=== PATIENT | male | born 1955 | race African-American/Black ===

== ENCOUNTER 2019-03-17 18:03 | Inpatient (IN) | payer OTHER ==
[~2019-03-17] VITALS: Ht 182.9 cm; Wt 140.3 kg
[2019-03-17 18:36] LABS: Basophils # (auto) 0.1 uL; Basophils % (auto) 1.1 % (0.0-2.0); Eosinophils # (auto) 0 uL; Eosinophils % (auto) 0.8 % (0.0-7.0); Hematocrit 48.8 % (41.0-53.0); Hemoglobin 15.9 g/dL (13.5-17.5); Lymphocytes # (auto) 1.5 uL; Lymphocytes % (auto) 29.8 % (10.0-50.0); Mean Corpuscular Hemoglobin 27.1 pg (28.0-32.0); Mean Corpuscular Hgb Conc. 32.7 g/dL (32.0-36.0); Monocytes # (auto) 0.6 uL; Monocytes % (auto) 11.5 % (0.0-12.0); Neutrophils # (auto) 2.9 uL; Neutrophils % (auto) 56.8 % (37.0-80.0); Nucleated Red Blood Cells % 0.1 %; Platelet Count (auto) 242 10^3/uL (140-450); Red Blood Cells 5.88 10^6/uL (4.5-5.90); Red Cell Distribution Width 16.3 % (11.8-14.3); White Blood Cell 5.1 10^3/uL (4.4-10.8)
[2019-03-17 18:59] LABS: Albumin 3.8 g/dL (3.4-5.0); BUN/Creatinine Ratio 13.9; Calcium 9.1 mg/dL (8.5-10.1); Magnesium 2.3 mg/dL (1.6-2.6); Potassium 4.7 mmol/L (3.5-5.1)
[2019-03-17 19:04] LABS: Bilirubin, Total 0.7 mg/dL (0.2-1.0); Total Protein 7.6 g/dL (6.4-8.2)
[2019-03-17 19:06] LABS: INR 1.04 (0.9-1.15)
[2019-03-17] MEDS ORDERED: NITROGLYCERIN 50MG/250ML 250 ML IV SCH (19:37)
[2019-03-17] MEDS ORDERED: METOPROLOL TARTRATE 1MG/1ML-5ML VIAL IV ONE ×2 (19:38→19:45)
[2019-03-17] MEDS ORDERED: MORPHINE SULF INJ 2 MG/ML SYRINGE 1ML IV PRN ×2 (19:45)
[2019-03-17] MEDS ORDERED: ACETAMINOPHEN 500 MG TAB PO PRN (19:45)
[2019-03-17] MEDS ORDERED: HYDROcodone-ACET 5/325MG TAB PO PRN (19:45)
[2019-03-17] MEDS ORDERED: NITROGLYCERIN 0.4 MG SL TAB SL PRN (19:45)
[2019-03-17] MEDS ORDERED: CLOPIDOGREL 300 MG TAB PO ONE (20:00)
[2019-03-17 20:28] LABS: Urine Bacteria NONE SEEN /hpf (None Seen); Urine Blood Negative /uL (Negative); Urine Specific Gravity 1.017 (1.001-1.035); Urine WBC <1 /hpf (0 - 3)
[2019-03-17] MEDS ORDERED: HEPARIN DRIP/D5W 100UNITS/ML 250 ML IV SCH (21:00)
[2019-03-17] MEDS ORDERED: HEPARIN SODIUM (PORCINE) 5000 UNITS/ML 1ML VIAL IV ONE (21:00)
[2019-03-17] MEDS: METOPROLOL TARTRATE 25 MG TAB PO SCH (22:14)
[2019-03-17] MEDS: ATORVASTATIN 20 MG TAB PO SCH (22:14)
[2019-03-18] MEDS ORDERED: METOPROLOL SUCCINATE XL 50 MG TAB PO ONE (01:00)
[2019-03-18] MEDS ORDERED: ATORVASTATIN 20 MG TAB PO ONE (01:00)
[2019-03-18] MEDS ORDERED: MORPHINE SULF INJ 2 MG/ML SYRINGE 1ML IV PRN (03:00)
[2019-03-18] MEDS ORDERED: NITROGLYCERIN 0.4 MG SL TAB SL PRN (03:00)
[2019-03-18 04:30] LABS: INR 1.1 (0.9-1.15); Partial Thromboplastin Time 37.1 sec (23.64-32.05)
[2019-03-18 07:23] LABS: Basophils # (auto) 0 uL; Basophils % (auto) 0.7 % (0.0-2.0); Eosinophils # (auto) 0 uL; Eosinophils % (auto) 0.9 % (0.0-7.0); Hematocrit 46.2 % (41.0-53.0); Hemoglobin 15.2 g/dL (13.5-17.5); Lymphocytes # (auto) 1.4 uL; Lymphocytes % (auto) 30.2 % (10.0-50.0); Mean Corpuscular Hemoglobin 27.2 pg (28.0-32.0); Mean Corpuscular Hgb Conc. 32.9 g/dL (32.0-36.0); Mean Corpuscular Volume 82.6 fL (80.0-100.0); Monocytes # (auto) 0.6 uL; Monocytes % (auto) 13.4 % (0.0-12.0); Neutrophils # (auto) 2.5 uL; Neutrophils % (auto) 54.8 % (37.0-80.0); Nucleated Red Blood Cells % 0.1 %; Platelet Count (auto) 251 10^3/uL (140-450); Red Blood Cells 5.59 10^6/uL (4.5-5.90); White Blood Cell 4.6 10^3/uL (4.4-10.8)
[2019-03-18 07:35] LABS: BUN/Creatinine Ratio 13.2; Calcium 8.5 mg/dL (8.5-10.1); Potassium 4.4 mmol/L (3.5-5.1)
[2019-03-18] MEDS ORDERED: LISINOPRIL 10 MG TAB PO ONE (07:45)
[2019-03-18 07:46] LABS: Cholesterol 169 mg/dL (< 200)
[2019-03-18 07:47] LABS: HDL Cholesterol 35 mg/dL (40-59); LDL Cholesterol 127 mg/dL (< 100); Triglycerides 60 mg/dL (< 150)
[2019-03-18 08:07] LABS: INR 1.1 (0.9-1.15); Partial Thromboplastin Time 39.2 sec (23.64-32.05)
[2019-03-18] MEDS ORDERED: ASPirin-EC 81 mg tab PO SCH (10:00)
[2019-03-18] MEDS ORDERED: ASPirin 81 mg TAB PO SCH (10:00)
[2019-03-18] MEDS: METOPROLOL TARTRATE 25 MG TAB PO SCH (10:09)
[2019-03-18] MEDS: FAMOTIDINE 20 MG TAB PO SCH (10:11)
[2019-03-18 10:32] LABS: INR 1.11 (0.9-1.15); Partial Thromboplastin Time 39.6 sec (23.64-32.05)
[2019-03-18] MEDS ORDERED: IOHEXOL 350 MG/ML 100ML IJ ONE ×2 (13:52→14:28)
[2019-03-18] MEDS ORDERED: LIDOCAINE 2%HCL (LOCAL ANESTH.) INJ 20ML MDV ONE ×2 (13:52→15:23)
[2019-03-18] MEDS ORDERED: MIDAZOLAM HCL 1MG/1ML-2 ML VIAL ONE ×2 (14:27→15:42)
[2019-03-18] MEDS ORDERED: SODIUM CHL 0.9% 0 ML ONE (14:27)
[2019-03-18] MEDS ORDERED: fentaNYL CITRATE 100 MCG/2 ML VL ONE (14:27)
[2019-03-18] MEDS ORDERED: ANGIOMAX 250 MG VIAL IV ONE (14:27)
--- NOTE | 2019-03-18 17:04 | NUR ---
Telemetry admit from labels molder MILA WILHELM admitted to Telemetry unit after SBAR received from labels molder. Patient oriented to CABRERA OCHOA, RN primary RN, unit, room, bed, and unit policies regarding patient care and visiting hours. Patient now on continuous telemetry monitoring, tele box # 10 and telemetry reading on arrival to unit is Sinus rythem. Patient placed on bedside oxygen 2 LPm NC, weighed by bedscale and encouraged to call if they need something. All questions and concerns addressed, patient verbalized understanding. Site is assessed and soft at this time. Will continue to monitor.
--- NOTE | 2019-03-18 17:29 | NUR ---
Access site assessed at this time and is soft. Patient has no complaints of pain at this time.
--- NOTE | 2019-03-18 17:58 | NUR ---
Access site assess at this time. Soft, patient states no pain at this time. Will continue to monitor.
--- NOTE | 2019-03-18 18:15 | NUR ---
Assess access site at this time. Soft, non tender.
--- NOTE | 2019-03-18 18:34 | NUR ---
Went to assess patient at this time. Patient standing, removed tele, removed IV. Patient instructed to get back in bed. Site assessed at this time. No hematoma formed. Will continue to monitor.
--- NOTE | 2019-03-18 18:53 | NUR ---
Site assessed at this time. Soft. No hematoma noted. Will continue to monitor.
--- NOTE | 2019-03-18 19:00 | NUR ---
Unsuccessful IV attempts by this nurse. Will endorse to NOC nurse
--- NOTE | 2019-03-18 19:27 | NUR ---
Closing Note: Patient lying in bed. No S/S of distress/SOB or pain at this time. at bedside. Care endorsed to [facility] nurse Gasca
[2019-03-18] MEDS: FUROSEMIDE 20 MG TAB PO SCH (19:32)
--- NOTE | 2019-03-18 19:40 | NUR ---
OPENING SHIFT NOTE RECEIVED REPORT FROM ABDULAZIZ RN. PATIENT A/O X4, AMBULATORY. AT BEDSIDE. NO S/S OF DISTRESS OR SOB. RIGHT GROIN DRESSING CLEAN, DRY, AND INTACT, NO S/S OF BLEEDING OR HEMATOMA. UPDATED PATIENT ON POC, VERBALIZED UNDERSTANDING. BED LOCKED IN LOW POSITION, CALL LIGHT WITHIN REACH. WILL CONTINUE TO MONITOR PATIENT Q1HR AND PRN.
--- NOTE | 2019-03-18 20:25 | NUR ---
CALL FROM DR SHAIKH INQUIRING ABOUT PATIENT STATUS, UPDATED MD ON PATIENT STATUS, AND NEW ORDER RECEIVED FOR CARVEDILOL 12.5MG BID. WILL CARRY OUT ORDER.
[2019-03-18] MEDS: ATORVASTATIN 20 MG TAB PO SCH (21:25)
[2019-03-18] MEDS: CARVEDILOL 12.5 MG TAB PO SCH (21:25)
[2019-03-18 21:54] LABS: INR 1.1 (0.9-1.15); Partial Thromboplastin Time 30.8 sec (23.64-32.05)
[2019-03-18 21:57] VITALS: BP 137/85
[2019-03-19 04:41] VITALS: BP 116/70
[2019-03-19] MEDS: FUROSEMIDE 20 MG TAB PO SCH ×2 (05:57→18:12)
[2019-03-19 07:13] LABS: BUN/Creatinine Ratio 14.8; Calcium 8.6 mg/dL (8.5-10.1); Potassium 4.6 mmol/L (3.5-5.1)
--- NOTE | 2019-03-19 07:20 | NUR ---
Opening Shift Note: Assumed care of patient, awake and alert. No S/S of distress/SOB or pain. Right groin access site assessed, no hematomas noted, patient states no pain. Bed in lowest locked position, side rails up x2, call light within reach. Patient and instructed on POC and to call for assist PRN, will continue to monitor for changes Q1hr and PRN.
--- NOTE | 2019-03-19 08:48 | NUR ---
Dr. Saba at bedside. Discussed POC with patient and family. Patient verbally agrees. Will continue to monitor.
[2019-03-19 09:00] VITALS: BP 144/89
[2019-03-19] MEDS: CARVEDILOL 12.5 MG TAB PO SCH ×2 (09:58→21:25)
[2019-03-19] MEDS: FAMOTIDINE 20 MG TAB PO SCH (09:58)
--- NOTE | 2019-03-19 10:36 | NUR ---
Patient down for VQ scan
--- NOTE | 2019-03-19 11:08 | NUR ---
Patient back to unit. Patient tolerated well. Will continue to monitor.
--- NOTE | 2019-03-19 11:26 | NUR ---
Patient ambulates forman. Patient tolerated well. Will continue to monitor.
[2019-03-19 13:00] VITALS: BP 125/83
[2019-03-19 13:10] LABS: INR 1.12 (0.9-1.15); Partial Thromboplastin Time 30.9 sec (23.64-32.05)
[2019-03-19 17:00] VITALS: BP 137/78
[2019-03-19 18:00] LABS: INR 1.12 (0.9-1.15); Partial Thromboplastin Time 32.2 sec (23.64-32.05)
--- NOTE | 2019-03-19 19:13 | NUR ---
Closing note: Patient laying in bed. No signs or symptoms of distress/SOB or pain at this time. Care endorse to [facility] nurse Gasca
--- NOTE | 2019-03-19 19:30 | NUR ---
OPENING SHIFT NOTE RECEIVED REPORT FROM DAYSHIFT RN. PATIENT A/O X4, AMBULATORY. NO S/S OF DISTRESS OR SOB. RIGHT GROIN DRESSING CLEAN, DRY, AND INTACT, NO S/S OF BLEEDING OR HEMATOMA. UPDATED PATIENT ON POC, VERBALIZED UNDERSTANDING. BED LOCKED IN LOW POSITION, CALL LIGHT WITHIN REACH. WILL CONTINUE TO MONITOR PATIENT Q1HR AND PRN.
[2019-03-19] MEDS: ATORVASTATIN 20 MG TAB PO SCH (21:25)
[2019-03-19 21:31] VITALS: BP 123/68
[2019-03-20 04:46] VITALS: BP 140/76
[2019-03-20] MEDS: FUROSEMIDE 20 MG TAB PO SCH ×2 (06:03→18:08)
[2019-03-20 06:10] LABS: Potassium 4.1 mmol/L (3.5-5.1)
[2019-03-20 06:15] LABS: BUN/Creatinine Ratio 14.4; Calcium 8.4 mg/dL (8.5-10.1)
--- NOTE | 2019-03-20 07:51 | NUR ---
OPENING NOTE Assumed care of patient from NOC RNKatharine. Patient awake and alert with no S/S of distress/SOB or pain. Instructed on POC and to call for assistance PRN, verbalized understanding. Bed in lowest, locked position with side rails up x2 and call light within reach. Will continue to monitor for changes Q1hr and PRN.
[2019-03-20 08:30] VITALS: BP 147/83
[2019-03-20] MEDS: FAMOTIDINE 20 MG TAB PO SCH (09:49)
[2019-03-20] MEDS: CARVEDILOL 12.5 MG TAB PO SCH ×2 (09:49→21:23)
[2019-03-20 12:30] VITALS: BP 143/84
--- NOTE | 2019-03-20 13:15 | NUR ---
FAMILY Patient's spouse, Jennifer, at bedside.
--- NOTE | 2019-03-20 16:42 | NUR ---
ROUNDS Patient sitting on side of bed, spouse is at bedside. No S/S of distress noted.
[2019-03-20 16:48] VITALS: BP 109/72
--- NOTE | 2019-03-20 19:30 | NUR ---
Opening Shift Note Assumed care of patient, awake and alert x4. noted at bedside. Patient denies pain at this time. No signs/symptoms of distress noted at this time. Instructed on plan of care and to call for assistance as needed. Bed is locked in lowest position, side rails x 2 are up, and call light is within reach.
--- NOTE | 2019-03-20 19:43 | NUR ---
CLOSING NOTE Endorsed care of patient to NOC RNLetty.
[2019-03-20] MEDS: ATORVASTATIN 20 MG TAB PO SCH (21:23)
[2019-03-20 22:21] VITALS: BP 142/87
[2019-03-21 05:13] VITALS: BP 153/87
[2019-03-21] MEDS: FUROSEMIDE 20 MG TAB PO SCH ×2 (05:48→18:37)
[2019-03-21 06:29] LABS: Basophils # (auto) 0 uL; Basophils % (auto) 0.4 % (0.0-2.0); Eosinophils # (auto) 0.1 uL; Eosinophils % (auto) 1.6 % (0.0-7.0); Hemoglobin 13.2 g/dL (13.5-17.5); Lymphocytes # (auto) 1.2 uL; Lymphocytes % (auto) 23.4 % (10.0-50.0); Mean Corpuscular Hemoglobin 27.4 pg (28.0-32.0); Mean Corpuscular Hgb Conc. 33.1 g/dL (32.0-36.0); Monocytes # (auto) 0.7 uL; Monocytes % (auto) 14.1 % (0.0-12.0); Neutrophils # (auto) 3.1 uL; Neutrophils % (auto) 60.5 % (37.0-80.0); Platelet Count (auto) 215 10^3/uL (140-450); Red Blood Cells 4.82 10^6/uL (4.5-5.90); White Blood Cell 5.1 10^3/uL (4.4-10.8)
[2019-03-21 06:48] LABS: BUN/Creatinine Ratio 12.2; Calcium 8.7 mg/dL (8.5-10.1); Potassium 3.8 mmol/L (3.5-5.1)
--- NOTE | 2019-03-21 07:15 | NUR ---
PATIENT TAKEN TO VARIETY LATHE OPERATOR Patient taken to laborer operator via stretcher with assistance of aide. No signs/symptoms of distress noted upon departure. Report given to laborer operator RN.
--- NOTE | 2019-03-21 07:27 | NUR ---
OPENING NOTE Assumed care of patient from NOC RNLetty. Patient currently off unit for scheduled procedure.
[2019-03-21] MEDS ORDERED: LIDOCAINE 2%HCL (LOCAL ANESTH.) INJ 20ML MDV ONE ×2 (07:44→08:55)
[2019-03-21] MEDS ORDERED: fentaNYL CITRATE 100 MCG/2 ML VL ONE (07:45)
[2019-03-21] MEDS ORDERED: MIDAZOLAM HCL 1MG/1ML-2 ML VIAL ONE (07:46)
[2019-03-21] MEDS ORDERED: ceFAZolin 1GM/50ML 50 ML IV ONE (08:01)
[2019-03-21] MEDS ORDERED: VANCOMYCIN HCL 1000 MG VL ONE ×2 (08:01→09:35)
[2019-03-21] MEDS ORDERED: VANCOMYCIN 1GM/250ML 250 ML IV ONE (09:20)
[2019-03-21] MEDS ORDERED: LABETALOL HCL 5 MG/ML ML 20ML VIAL IV ONE (10:04)
[2019-03-21] MEDS: CARVEDILOL 12.5 MG TAB PO SCH ×3 (10:31→21:51)
[2019-03-21] MEDS: FAMOTIDINE 20 MG TAB PO SCH (10:31)
[2019-03-21] MEDS ORDERED: HYDROcodone-ACET 5/325MG TAB PO PRN (11:00)
--- NOTE | 2019-03-21 11:33 | NUR ---
RETURN TO UNIT Patient returned to unit via bed, accompanied by spouse. Dressing to left upper chest clean/dry and intact. No S/S of distress/SOB or pain noted. Will continue to monitor Q1hr/PRN.
[2019-03-21] MEDS: ceFAZolin 1GM/50ML 50 ML IV SCH ×3 (12:35→23:57)
--- NOTE | 2019-03-21 13:02 | NUR ---
NUTRITION ASSESSMENT NOTES Please refer to link notes of nutrition screen form filed under the intervention section of the plan of care for further details. Est. Needs: 2100 kcal to 2800 kcal (15-20 kcal/kgBW), 65 gms to 81 gms pro (1.0-1.2 gms/kgIBW: 65 kg). Will continue to monitor pertinent labs and reassess nutrient need prn Thank you. Addendum: 03/21/19 at [address] Amended: Links added.
--- NOTE | 2019-03-21 13:55 | NUR ---
NEPHROLOGY New orders received for urine protein creatinine clearance test, per Dr. Kamila Monroe.
[2019-03-21 17:02] VITALS: BP 149/73
--- NOTE | 2019-03-21 17:05 | NUR ---
URINE Urine specimen collected and sent to lab via bullet.
--- NOTE | 2019-03-21 19:30 | NUR ---
Opening Shift Note Assumed care of patient, awake and alert x4. noted at bedside. Patient denies pain at this time. No signs/symptoms of distress noted at this time. Instructed on plan of care and to call for assistance as needed, patient verbalized understanding. Bed is locked in lowest position, side rails x 2 are up, and call light is within reach.
[2019-03-21 21:32] VITALS: BP 139/84
[2019-03-21] MEDS: SACUBITRIL-VALSARTAN 24mg/26mg TAB PO SCH (21:50)
[2019-03-21] MEDS: ATORVASTATIN 20 MG TAB PO SCH (21:50)
[2019-03-22 04:25] LABS: Protein, Urine 16.6 mg/dL (0.0-11.9)
[2019-03-22 05:34] VITALS: BP 149/84
[2019-03-22] MEDS: FUROSEMIDE 20 MG TAB PO SCH (06:10)
[2019-03-22] MEDS: ceFAZolin 1GM/50ML 50 ML IV SCH ×2 (06:10→12:45)
[2019-03-22 06:28] LABS: Potassium 4.1 mmol/L (3.5-5.1)
[2019-03-22 06:37] LABS: BUN/Creatinine Ratio 13.3; Calcium 8.1 mg/dL (8.5-10.1)
--- NOTE | 2019-03-22 07:30 | NUR ---
Opening Shift Note Assumed care of patient, awake and alert. No S/S of distress, SOB or pain. is at bedside, instructed both on POC and to call for assist PRN. Bed is in lowest position with 2x side rails up for safety and call light is within reach. Will continue to monitor for changes Q1hr and PRN.
[2019-03-22 08:00] VITALS: BP 158/87
--- NOTE | 2019-03-22 08:00 | NUR ---
Opening Shift Note Assumed care of patient, awake and alert. No S/S of distress/SOB or pain. With left upper chest dressing secondary to AICD placement dry and intact. Instructed on POC and to call for assist PRN, will continue to monitor for changes Q1hr and PRN.
[2019-03-22 09:00] VITALS: BP 158/87
--- NOTE | 2019-03-22 10:00 | NUR ---
Requested for handicapped parking ticket, per Dr. Saba patient has to go to his PCP for it. Patient is aware and verbalized understanding.
[2019-03-22 10:20] VITALS: BP 158/87
[2019-03-22] MEDS: CARVEDILOL 12.5 MG TAB PO SCH (10:20)
[2019-03-22] MEDS: SACUBITRIL-VALSARTAN 24mg/26mg TAB PO SCH (10:22)
[2019-03-22] MEDS: FAMOTIDINE 20 MG TAB PO SCH (10:23)
[2019-03-22 13:00] VITALS: BP 117/82
--- NOTE | 2019-03-22 15:45 | NUR ---
Received a call from Dee of [facility] re: Walker with a sit, patient needs authorization from health insurance for delivery of walker. If any questions or concerns Dee may be contacted to this #[phone]. Addendum: 03/22/19 at 1606 by Tay Rahman RN Left a message to Taty of case management ext. [phone] regarding this.
--- NOTE | 2019-03-22 16:15 | NUR ---
Per Taty of case management home health services will be rendered by [facility] post discharge. Walker with a sit is still on process and as per Taty, she will call for authorization for delivery of the walker.
--- NOTE | 2019-03-22 16:21 | NUR ---
Patient no longer lives in [place], [place]. His new address is [id number] [place] [address].
[2019-03-22 16:46] VITALS: BP 134/92
--- NOTE | 2019-03-22 17:08 | NUR ---
Discharge planning, patient has orders for home health and DME. Referrals sent to [facility] for DME and [facility] for home health. [facility] are awaiting auth from [facility]. Left manager financial systems message regarding auth. Addendum: 03/23/19 at 1409 by ARISTEO SÁNCHEZ SS Patient was orginally assigned to [facility] home health but patient lives in [place] at [address] [place] [address]. Adelina is at [phone]. DME was ordered with [facility], placed a follow up call, spoke with Sydni and was advised that they will deliver the walker to the patient today. Home health was changed to [facility]. Referral was faxed, placed a follow up call, spoke with Emili and was advised that they will accept this patient and start of care will be within 24-48 hours upon dc. Spoke to Sydni at [facility] and was advised that she did speak with the and advised her to change medical groups to which she said the advised she would be working on it.
--- NOTE | 2019-03-22 17:20 | NUR ---
Per Taty of case management, may proceed with discharge. Patient to received home health with [facility] Home [facility] and walker will be delivered at home. Will proceed with discharge.
--- NOTE | 2019-03-22 17:30 | NUR ---
Discharge instructions given as ordered. Encourage to follow up with PMD Dr. Dahiana Briceño in [place], [place] as instructed. Patient needs referral from primary care physician prior to making appointment with cardiology-Dr. John Monroe. All questions and concerns addressed. Patient verbalized understanding. Medication reconciliation form completed and copy given to patient. IV removed with catheter intact, pressure dressing applied. Telemetry unit returned to ICU. Patient taken to vehicle via wheelchair with all personal belongings, accompanied by staff and family member. No distress noted at time of departure.
== END 2019-03-22 17:30 | disposition home health service (06) | DRG 222 ==
LOC: EDBD 18:03 → ER 18:08 → TELE 18:09 → TELE-EAST 03-18 18:49
PROVIDERS: ADMIT Nurse Practitioner Acute Care; ATTEND Family Medicine
PROC: 4A023N7 Measurement of Cardiac Sampling and Pressure, Left Heart, Percutaneous Approach (ICD-10-PCS; principal; 2019-03-18)
PROC: B2111ZZ Fluoroscopy of Multiple Coronary Arteries using Low Osmolar Contrast (ICD-10-PCS; 2019-03-18)
PROC: B2151ZZ Fluoroscopy of Left Heart using Low Osmolar Contrast (ICD-10-PCS; 2019-03-18)
PROC: 5A2204Z Restoration of Cardiac Rhythm, Single (ICD-10-PCS; 2019-03-18)
PROC: B41F1ZZ Fluoroscopy of Right Lower Extremity Arteries using Low Osmolar Contrast (ICD-10-PCS; 2019-03-18)
PROC: 0JH608Z Insertion of Defibrillator Generator into Chest Subcutaneous Tissue and Fascia, Open Approach (ICD-10-PCS; 2019-03-21)
PROC: 02HK3KZ Insertion of Defibrillator Lead into Right Ventricle, Percutaneous Approach (ICD-10-PCS; 2019-03-21)
PROC: B5171ZZ Fluoroscopy of Left Subclavian Vein using Low Osmolar Contrast (ICD-10-PCS; 2019-03-21)
DX: I21.4 Non-ST elevation (NSTEMI) myocardial infarction (principal); N17.0 Acute kidney failure with tubular necrosis; Z68.41 Body mass index [BMI] 40.0-44.9, adult; I13.0 Hypertensive heart and chronic kidney disease with heart failure and stage 1 through stage 4 chronic kidney disease, or unspecified chronic kidney disease; I16.1 Hypertensive emergency; I42.0 Dilated cardiomyopathy; I48.92 Unspecified atrial flutter; E11.22 Type 2 diabetes mellitus with diabetic chronic kidney disease; N18.3 Chronic kidney disease, stage 3 (moderate); E78.5 Hyperlipidemia, unspecified; E66.01 Morbid (severe) obesity due to excess calories; E78.00 Pure hypercholesterolemia, unspecified; I48.91 Unspecified atrial fibrillation; I50.9 Heart failure, unspecified; Z79.899 Other long term (current) drug therapy; Z88.8 Allergy status to other drugs, medicaments and biological substances; Z82.49 Family history of ischemic heart disease and other diseases of the circulatory system; Z91.14 Patient's other noncompliance with medication regimen
CPT/HCPCS: 33249; 36415; 36600; 71045; 75710; 75820; 78582; 80048; 80053; 80061; 81001; 82570; 82805; 82962; 83036; 83735; 83880; 84156; 84484; 85025; 85379; 85610; 85730; 86141; 92960; 93005; 93306; 93458; 93970; 96365; 96375; 99152; 99153; G0378; J0690; J2250

== ENCOUNTER 2019-09-05 21:34 | Inpatient (IN) | payer OTHER ==
[~2019-09-05] VITALS: Ht 175.3 cm; Wt 145.0 kg
[2019-09-05 22:28] LABS: Basophils # (auto) 0 10 ^3/uL (0-0.2); Basophils % (auto) 0.6 % (0.0-2.0); Eosinophils # (auto) 0.1 10 ^3/uL (0-0.8); Eosinophils % (auto) 1.8 % (0.0-7.0); Hematocrit 48.5 % (41.0-53.0); Lymphocytes # (auto) 1.6 10 ^3/uL (0.4-5.4); Lymphocytes % (auto) 29.6 % (10.0-50.0); Mean Corpuscular Hemoglobin 27.8 pg (28.0-32.0); Mean Corpuscular Hgb Conc. 33.1 g/dL (32.0-36.0); Monocytes # (auto) 0.7 10 ^3/uL (0-1.3); Monocytes % (auto) 13.4 % (0.0-12.0); Neutrophils % (auto) 54.6 % (37.0-80.0); Nucleated Red Blood Cells % 0.2 %; Platelet Count (auto) 208 10^3/uL (140-450); Red Blood Cells 5.77 10^6/uL (4.5-5.90); Red Cell Distribution Width 15.8 % (11.8-14.3); White Blood Cell 5.5 10^3/uL (4.4-10.8)
[2019-09-05 22:44] LABS: Albumin 3.5 g/dL (3.4-5.0); Calcium 8.7 mg/dL (8.5-10.1); INR 1.14 (0.9-1.15); Magnesium 2.3 mg/dL (1.6-2.6); Partial Thromboplastin Time 31.4 sec (23.64-32.05); Potassium 4.4 mmol/L (3.5-5.1)
[2019-09-05 22:50] LABS: BUN/Creatinine Ratio 14.1; Total Protein 7.3 g/dL (6.4-8.2)
[2019-09-06] VITALS (8 sets, daily range): BP systolic 108–198; BP diastolic 71–105
[2019-09-06] MEDS ORDERED: HEPARIN DRIP/D5W 100UNITS/ML 250 ML IV SCH (01:56)
[2019-09-06] MEDS ORDERED: MORPHINE SULFATE 4 MG/ML SYR/VIAL IV PRN (02:00)
[2019-09-06] MEDS ORDERED: HEPARIN SODIUM (PORCINE) 5000 UNITS/ML 1ML VIAL IV ONE (02:00)
[2019-09-06] MEDS ORDERED: DEXTROSE (50%) 50ML SYRG IV PRN (02:00)
[2019-09-06] MEDS ORDERED: ONDANSETRON HCL 4 MG/2 ML VIAL IV PRN (02:00)
[2019-09-06] MEDS ORDERED: DOCUSATE SOD 100 MG CAP PO PRN (02:00)
[2019-09-06] MEDS ORDERED: MORPHINE SULF INJ 2 MG/ML SYRINGE 1ML IV PRN (02:00)
[2019-09-06] MEDS ORDERED: NITROGLYCERIN 0.4 MG SL TAB SL PRN (02:00)
[2019-09-06 02:13] LABS: Urine Bacteria FEW /hpf (None Seen); Urine Blood Negative /uL (Negative); Urine Hyaline Cast MOD /lpf (0 - 2); Urine Mucus FEW (None Seen); Urine Specific Gravity 1.018 (1.001-1.035); Urine WBC 2 /hpf (0 - 3)
[2019-09-06] MEDS: ENOXAPARIN SOD 150 MG/1 ML SYRINGE SC SCH ×3 (02:34→21:33)
--- NOTE | 2019-09-06 03:00 | NUR ---
RECEIVED PATIENT FROM ER NO REPORT RECEIVED. ATTEMPTED TO CONTACT ER NURSE. NO RESPONSE PROVIDED. PATIENT ALERT AND ORIENTED. ASSUMING ROLE OF CARE AT THIS TIME. PATIENT EDUCATED ON PLAN OF CARE FOR THE NIGHT AND PATIENT VERBALIZED UNDERSTANDING. ADMISSION ASSESSMENT PERFORMED AND ALL CONCERNS ADDRESSED AT THIS TIME. BED LOWERED, CALL LIGHT WITHIN REACH, AND PATIENT WILL BE ROUNDED ON EVERY HOUR AND NEEDED.
[2019-09-06] MEDS ORDERED: SACU1TAB PO (04:04)
[2019-09-06] MEDS ORDERED: CAR125T OR (04:04)
[2019-09-06] MEDS ORDERED: POTA-220 PO (04:04)
[2019-09-06] MEDS ORDERED: ASPI81CH43 PO (04:04)
[2019-09-06] MEDS ORDERED: ATO40T PO (04:04)
[2019-09-06] MEDS ORDERED: FURO1TAB31 PO (04:05)
[2019-09-06] MEDS: ACCU-CHEK COMFORT CURVE STRIP VI SCH ×4 (06:15→21:33)
[2019-09-06] MEDS: FUROSEMIDE 40 MG TAB PO SCH ×2 (06:15→18:13)
[2019-09-06] MEDS: InsuLIN REG 1unit/0.01ml Soln (100units/ml) SC SCH ×4 (06:16→21:33)
--- NOTE | 2019-09-06 06:23 | NUR ---
PATIENT'S BS 63 PATIENT GIVEN ORANGE JUICE WITH SOME SUGAR. PATIENT ASYMPTOMATIC AT THIS TIME. WILL CONTINUE TO MONITOR.
[2019-09-06 06:29] LABS: Calcium 8.3 mg/dL (8.5-10.1); Potassium 3.6 mmol/L (3.5-5.1)
[2019-09-06 06:33] LABS: BUN/Creatinine Ratio 14.7
--- NOTE | 2019-09-06 07:30 | NUR ---
Opening Shift Note Assumed care of patient, awake and alert. No S/S of distress/SOB or pain. Instructed on POC and to call for assist PRN, will continue to monitor for changes Q1hr and PRN.
--- NOTE | 2019-09-06 09:28 | NUR ---
Dr. Vilchis in to see patient as primary MD. He was informed the MRI brain can't be done as patient has an AICD.
[2019-09-06] MEDS: POTASSIUM CHL 20 Meq TABLET PO SCH (09:41)
[2019-09-06] MEDS ORDERED: ASPirin-EC 81 mg tab PO SCH (10:00)
[2019-09-06 10:31] LABS: Basophils # (auto) 0 10 ^3/uL (0-0.2); Basophils % (auto) 0.7 % (0.0-2.0); Eosinophils # (auto) 0.1 10 ^3/uL (0-0.8); Eosinophils % (auto) 2.5 % (0.0-7.0); Hemoglobin 16.7 g/dL (13.5-17.5); Lymphocytes # (auto) 1.6 10 ^3/uL (0.4-5.4); Mean Corpuscular Hemoglobin 27.9 pg (28.0-32.0); Mean Corpuscular Hgb Conc. 33.5 g/dL (32.0-36.0); Mean Corpuscular Volume 83.4 fL (80.0-100.0); Monocytes # (auto) 0.8 10 ^3/uL (0-1.3); Monocytes % (auto) 17.1 % (0.0-12.0); Neutrophils # (auto) 2.2 10 ^3/uL (1.6-8.6); Neutrophils % (auto) 45.7 % (37.0-80.0); Nucleated Red Blood Cells % 0.2 %; Platelet Count (auto) 214 10^3/uL (140-450); Red Cell Distribution Width 15.4 % (11.8-14.3); White Blood Cell 4.8 10^3/uL (4.4-10.8)
--- NOTE | 2019-09-06 10:40 | NUR ---
I faxed home health order to [facility].
--- NOTE | 2019-09-06 10:44 | NUR ---
Spoke with several family members re patient. Assured them that patient will not be discharged until cleared by neurology.Family also informed that a cardiology consult is also pending.
--- NOTE | 2019-09-06 11:10 | NUR ---
Spoke with Dr. Bolden re patient/family request for CPAP. Dr. Bolden states the patient needs to follow up with his primary MD for the CPAP. Patient informed.
--- NOTE | 2019-09-06 11:45 | NUR ---
Blood sugar 56, recheck 60. Patient given orange juice with sugar. Will continue to monitor.
--- NOTE | 2019-09-06 15:05 | NUR ---
Received call from patient's . She is requesting an update. She states the patient said that a doctor has been in to see him but he is not sure what the doctor said. Patient described Dr. Oliver. Page placed to Dr. Oliver.
--- NOTE | 2019-09-06 15:10 | NUR ---
environmental technical officer at bedside.
--- NOTE | 2019-09-06 15:14 | NUR ---
Return call from Dr. Oliver. He confirmed that he did see the patient and he informed the patient that he will be on blood thinners when he is discharged. Dr. Oliver states the patient needs to be seen by neurology and neurologist can update the family.
--- NOTE | 2019-09-06 15:30 | NUR ---
Dr. Brennan in to see patient for neurology consult. He was informed that Dr. Oliver has seen the patient for cardiology but has not entered any notes. Dr. Brennan states that Dr. Oliver needs to review the echo and decide what anticoagulant to send the patient home with. Dr. Brennan states he will call the patients's .
--- NOTE | 2019-09-06 16:02 | NUR ---
B/P right arm - 168/139. B/P left arm 198/99. Dr. Bolden informed. New orders received. Dr. Bolden informed that patient has been seen by cardiology and neurology but has not been cleared for discharge by either MD.
[2019-09-06] MEDS: hydrALAZINE HCL 20 MG/ML VL IV PRN (16:15)
[2019-09-06] MEDS ORDERED: APIX5TAB OR (16:45)
--- NOTE | 2019-09-06 17:10 | NUR ---
Discharge order noted from Dr. Bolden. No discharge diagnosis is charted. Message left for Dr. Bolden to return call.
--- NOTE | 2019-09-06 17:22 | NUR ---
B/P 164/93. Waiting for return call from Dr. Bolden.
--- NOTE | 2019-09-06 17:26 | NUR ---
Return call from Dr. Bolden. Discharge diagnosis: stroke.
--- NOTE | 2019-09-06 17:51 | NUR ---
Received call from jad Ruby RN. He received a call from the patient's son. Son is requesting to speak with Dr. Bolden before patient is discharged. Dr. Bolden informed and he was given the phone number for patient's Adelina: [phone]. Dr. Bolden states he is at [facility] and will call the family later. jad Ruby RN, informed.
--- NOTE | 2019-09-06 18:13 | NUR ---
Received call from Dr. Bolden. He was informed, again, that cardiology and neurology have seen the patient but neither MD has notes in the chart. Received request from Dr. Bolden to contact Dr. Brennan to verify the patient is cleared for discharge from neurology standpoint. Page placed to Dr. Brennan.
--- NOTE | 2019-09-06 18:36 | NUR ---
Return call from Dr. Brennan, neurologist. He states patient is cleared for discharge.
--- NOTE | 2019-09-06 19:39 | NUR ---
SPOKE WITH CHARGE NURSE REGARDING DC OK TO HOLD DC AT THIS TIME. SPOKE WITH PT. PER PATIENT, AN MD CALLED THEM AND MADE THEM AWARE OF HOLDING DC WELL. WILL CONTINUE CARE AND WILL CONTINUE TO MONITOR PATIENT.
--- NOTE | 2019-09-06 19:45 | NUR ---
SPOKE WITH FAMILY FAMILY REQUESTING INFO ON PT. INFO PROVIDED TO BEST OF ABILITY. FAMILY STATES THAT THEY WERE TOLD THERE WAS A POSSIBLE ISSUE WITH PT'S PACEMAKER. FAMILY TOLD THAT PATIENT WILL BE HELD FOR THE NIGHT BY MD THAT CONTACTED THEM. FAMILY UNAWARE OF WHICH MD CONTACTED THEM. WILL INFORM CHARGE NURSE.
--- NOTE | 2019-09-06 20:15 | NUR ---
RECEIVED CALL FROM MD REYNOLDS UPDATED MD TO BEST OF ABILITY IN REGARDS TO PT AND FAMILY. MD STATED THEY WILL SPEAK TO MD FRANK. WILL CONTINUE TO MONITOR PATIENT AT THIS TIME.
--- NOTE | 2019-09-06 21:04 | NUR ---
CONTACTED FAMILY MEMBER OF PT SPOKE WITH JABIER IN REGARDS TO CALLS WITH MD. PER FAMILY MEMBER, THEY ARE STILL WAITING BODY FORMER FROM VERTICAL ROLL OPERATOR TO CLEAR PT AND THAT MONIKA CONTACTED PT AND STATED THAT THEY WANTED TO LOOK AT OTHER "NUMBERS" IN REGARDS TO PATIENT'S DEFIBRILLATOR. FAMILY WILL CALL AGAIN IN THE MORNING. WILL ENDORSE TO DAYSHIFT AND INFORM CHARGE NURSE AT THIS TIME. WILL CONTINUE TO MONITOR PATIENT.
[2019-09-06] MEDS ORDERED: ATORVASTATIN 20 MG TAB PO SCH (22:00)
[2019-09-07 05:00] VITALS: BP 125/84
[2019-09-07 05:36] LABS: Basophils # (auto) 0 10 ^3/uL (0-0.2); Eosinophils # (auto) 0.1 10 ^3/uL (0-0.8); Monocytes # (auto) 0.6 10 ^3/uL (0-1.3); Neutrophils # (auto) 2.3 10 ^3/uL (1.6-8.6)
[2019-09-07 05:39] LABS: Basophils % (auto) 0.6 % (0.0-2.0); Hematocrit 49.7 % (41.0-53.0); Hemoglobin 16.7 g/dL (13.5-17.5); Lymphocytes # (auto) 1.7 10 ^3/uL (0.4-5.4); Lymphocytes % (auto) 36.2 % (10.0-50.0); Mean Corpuscular Hemoglobin 28.2 pg (28.0-32.0); Mean Corpuscular Hgb Conc. 33.6 g/dL (32.0-36.0); Mean Corpuscular Volume 83.7 fL (80.0-100.0); Monocytes % (auto) 12.1 % (0.0-12.0); Neutrophils % (auto) 49.1 % (37.0-80.0); Nucleated Red Blood Cells % 0.3 %; Platelet Count (auto) 202 10^3/uL (140-450); Red Blood Cells 5.93 10^6/uL (4.5-5.90); Red Cell Distribution Width 15.3 % (11.8-14.3); White Blood Cell 4.8 10^3/uL (4.4-10.8)
[2019-09-07 05:48] LABS: BUN/Creatinine Ratio 13.1; Calcium 8.7 mg/dL (8.5-10.1); Magnesium 2.3 mg/dL (1.6-2.6); Potassium 3.6 mmol/L (3.5-5.1)
[2019-09-07] MEDS: ACCU-CHEK COMFORT CURVE STRIP VI SCH ×2 (05:58→12:01)
[2019-09-07] MEDS: FUROSEMIDE 40 MG TAB PO SCH (05:58)
[2019-09-07] MEDS: InsuLIN REG 1unit/0.01ml Soln (100units/ml) SC SCH ×2 (05:58→11:30)
[2019-09-07 08:00] VITALS: BP 122/78
[2019-09-07 08:50] VITALS: BP 122/78
[2019-09-07] MEDS ORDERED: APIXABAN 5 MG TAB PO SCH (10:00)
[2019-09-07] MEDS: POTASSIUM CHL 20 Meq TABLET PO SCH (10:58)
--- NOTE | 2019-09-07 12:02 | NUR ---
LOW GLUCOSE. PATIENT IS ASYMPTOMATIC. HE REPORTS THAT HE NORMAL HAS LOW BLOOD SUGAR. ORANGE JUICE AND KRISTI CRACKERS.
[2019-09-07 12:29] VITALS: BP 192/87
[2019-09-07] MEDS: hydrALAZINE HCL 20 MG/ML VL IV PRN (13:09)
--- NOTE | 2019-09-07 14:35 | NUR ---
Discharge instructions given as ordered. Encourage to follow up with PMD as instructed. All questions and concerns addressed. Patient verbalized understanding. IV removed with catheter intact, pressure dressing applied. Telemetry unit returned to ICU. Patient taken to vehicle via wheelchair with all personal belongings, accompanied by staff and family member. No distress noted at time of departure.
--- NOTE | 2019-09-07 14:40 | NUR ---
I spoke with [facility] Radiologist Chief Of Breast Imaging Lesia-she said [facility] has accepted this patient-service to start within 24 to 48 hours.
== END 2019-09-07 14:35 | disposition home health service (06) | DRG 65 ==
LOC: ER 21:35 → TELE 21:36 → TELE-WESTW 09-06 02:40
PROVIDERS: ADMIT Hospitalist; ATTEND Hospitalist
PROC: 4B02XTZ Measurement of Cardiac Defibrillator, External Approach (ICD-10-PCS; principal; 2019-09-07)
DX: I63.9 Cerebral infarction, unspecified (principal); G81.94 Hemiplegia, unspecified affecting left nondominant side; I13.0 Hypertensive heart and chronic kidney disease with heart failure and stage 1 through stage 4 chronic kidney disease, or unspecified chronic kidney disease; I50.22 Chronic systolic (congestive) heart failure; Z68.41 Body mass index [BMI] 40.0-44.9, adult; I42.0 Dilated cardiomyopathy; R00.1 Bradycardia, unspecified; I25.10 Atherosclerotic heart disease of native coronary artery without angina pectoris; E78.5 Hyperlipidemia, unspecified; R47.81 Slurred speech; E11.22 Type 2 diabetes mellitus with diabetic chronic kidney disease; Z95.810 Presence of automatic (implantable) cardiac defibrillator; N18.3 Chronic kidney disease, stage 3 (moderate); E66.01 Morbid (severe) obesity due to excess calories; Z79.01 Long term (current) use of anticoagulants; Z82.49 Family history of ischemic heart disease and other diseases of the circulatory system; I25.2 Old myocardial infarction; Z88.6 Allergy status to analgesic agent; Y92.098 Other place in other non-institutional residence as the place of occurrence of the external cause; Z86.79 Personal history of other diseases of the circulatory system
CPT/HCPCS: 36415; 70450; 71045; 80048; 80053; 80061; 81001; 82962; 83036; 83735; 83880; 84443; 84484; 85025; 85610; 85730; 93005; 93306; 93886; 97163; G0378

== ENCOUNTER 2021-04-06 11:02 | Emergency (ER) | payer OTHER ==
[~2021-04-06] VITALS: Ht 172.7 cm; Wt 140.6 kg
[~2021-04-06 11:02] MED LIST: APIX5TAB OR; ASPI81CH43 PO; ATO40T PO; FURO1TAB31 PO; POTA-220 PO; SACU1TAB PO
[2021-04-06 12:36] LABS: Basophils # (auto) 0 10 ^3/uL (0-0.2); Basophils % (auto) 0.1 % (0.0-2.0); Eosinophils # (auto) 0 10 ^3/uL (0-0.8); Eosinophils % (auto) 0.1 % (0.0-7.0); Hematocrit 47.5 % (41.0-53.0); Hemoglobin 15.8 g/dL (13.5-17.5); Lymphocytes # (auto) 0.6 10 ^3/uL (0.4-5.4); Mean Corpuscular Hemoglobin 27.9 pg (28.0-32.0); Mean Corpuscular Hgb Conc. 33.3 g/dL (32.0-36.0); Mean Corpuscular Volume 83.8 fL (80.0-100.0); Monocytes # (auto) 0.5 10 ^3/uL (0-1.3); Monocytes % (auto) 6.6 % (0.0-12.0); Neutrophils # (auto) 6.3 10 ^3/uL (1.6-8.6); Neutrophils % (auto) 85.2 % (37.0-80.0); Red Blood Cells 5.66 10^6/uL (4.5-5.90); Red Cell Distribution Width 14.8 % (11.8-14.3); White Blood Cell 7.4 10^3/uL (4.4-10.8)
[2021-04-06 12:49] LABS: Albumin 3.4 g/dL (3.4-5.0); Calcium 8.8 mg/dL (8.5-10.1); Potassium 4.6 mmol/L (3.5-5.1)
[2021-04-06 12:52] LABS: BUN/Creatinine Ratio 14.9; Bilirubin, Total 1.3 mg/dL (0.2-1.0); Total Protein 7.2 g/dL (6.4-8.2)
[2021-04-06] MEDS ORDERED: ONDANSETRON HCL 4 MG/2 ML VIAL IV ONE (13:30)
[2021-04-06] MEDS ORDERED: PROMETHAZINE HCL 25 MG/ML 1ML IV ONE (14:15)
[2021-04-06] MEDS ORDERED: SODIUM CHLORIDE 0.9% 1,000 ML IV ONE (15:00)
[2021-04-06 16:28] VITALS: BP 153/74
== END 2021-04-06 16:29 | disposition home or self-care (01) ==
LOC: ER 11:02
DX: R10.84 Generalized abdominal pain (principal); I49.9 Cardiac arrhythmia, unspecified; I25.2 Old myocardial infarction; I11.0 Hypertensive heart disease with heart failure; I50.9 Heart failure, unspecified; E78.5 Hyperlipidemia, unspecified; E11.9 Type 2 diabetes mellitus without complications; Z95.0 Presence of cardiac pacemaker; Z79.82 Long term (current) use of aspirin; Z79.899 Other long term (current) drug therapy; Z88.8 Allergy status to other drugs, medicaments and biological substances; Z20.822 Contact with and (suspected) exposure to COVID-19
CPT/HCPCS: 36415; 71045; 74176; 80053; 83690; 85025; 87426; 93005; 96361; 96374; 96375; 99285; J2405; J2550; J7030

== ENCOUNTER 2021-05-22 15:26 | Emergency (ER) | payer OTHER ==
[~2021-05-22] VITALS: Ht 172.7 cm; Wt 136.1 kg
[2021-05-22 17:25] LABS: Basophils # (auto) 0 10 ^3/uL (0-0.2); Basophils % (auto) 0.3 % (0.0-2.0); Eosinophils # (auto) 0 10 ^3/uL (0-0.8); Eosinophils % (auto) 0.3 % (0.0-7.0); Hematocrit 35.8 % (41.0-53.0); Hemoglobin 11.8 g/dL (13.5-17.5); Lymphocytes # (auto) 1.1 10 ^3/uL (0.4-5.4); Lymphocytes % (auto) 13.1 % (10.0-50.0); Mean Corpuscular Hemoglobin 27.9 pg (28.0-32.0); Mean Corpuscular Hgb Conc. 33.1 g/dL (32.0-36.0); Mean Corpuscular Volume 84.5 fL (80.0-100.0); Monocytes # (auto) 0.7 10 ^3/uL (0-1.3); Monocytes % (auto) 8.1 % (0.0-12.0); Neutrophils # (auto) 6.4 10 ^3/uL (1.6-8.6); Neutrophils % (auto) 78.2 % (37.0-80.0); Nucleated Red Blood Cells % 0.1 %; Red Blood Cells 4.24 10^6/uL (4.5-5.90); Red Cell Distribution Width 15.1 % (11.8-14.3); White Blood Cell 8.2 10^3/uL (4.4-10.8)
[2021-05-22 17:35] LABS: INR 1.14 (0.9-1.15); Partial Thromboplastin Time 29.1 sec (23.6-33.0)
[2021-05-22 17:50] LABS: Calcium 8.2 mg/dL (8.5-10.1); Potassium 5.3 mmol/L (3.5-5.1)
[2021-05-22] MEDS ORDERED: ALBUTEROL SULF 2.5 MG/0.5ML(0.5%) NEB SOLN NEB ONE (18:15)
[2021-05-22] MEDS ORDERED: SODIUM BICARBONATE 8.4% INJ 50ML SYRINGE IV ONE (18:15)
[2021-05-22] MEDS ORDERED: CALCIUM GLUC 1,000mg/50ml-NS 50 ML IV ONE (18:15)
[2021-05-22] MEDS ORDERED: FUROSEMIDE 20 MG/2 ML VIAL IV ONE (18:15)
[2021-05-22] MEDS ORDERED: SODIUM ZIRCONIUM CYCL 10 GM PAK PO ONE (18:15)
[2021-05-22 18:16] VITALS: BP 121/65
[2021-05-22 20:55] LABS: BUN/Creatinine Ratio 31.4; Bilirubin, Total 0.6 mg/dL (0.2-1.0); Total Protein 5.9 g/dL (6.4-8.2)
== END 2021-05-22 18:45 | disposition home or self-care (01) ==
LOC: EDSEX 15:26 → EDUNIT# 15:26 → EDBD 15:26 → ER 15:26
DX: R55 Syncope and collapse (principal); E87.5 Hyperkalemia; I25.2 Old myocardial infarction; I11.0 Hypertensive heart disease with heart failure; I50.9 Heart failure, unspecified; E11.9 Type 2 diabetes mellitus without complications; E78.5 Hyperlipidemia, unspecified; Z79.82 Long term (current) use of aspirin; Z79.899 Other long term (current) drug therapy; Z88.8 Allergy status to other drugs, medicaments and biological substances
CPT/HCPCS: 36415; 70450; 71045; 74176; 80053; 84484; 85025; 85610; 85730; 94640; 96365; 96375; 99285; J0610; J1940

== ENCOUNTER 2023-07-20 13:13 | Observation (INO) | payer OTHER ==
[~2023-07-20] VITALS: Ht 175.3 cm; Wt 150.0 kg
[2023-07-20 13:41] LABS: Basophils # (auto) 0 10 ^3/uL (0-0.2); Eosinophils # (auto) 0.1 10 ^3/uL (0-0.8); Mean Corpuscular Volume 81.7 fL (80.0-100.0)
[2023-07-20 13:43] LABS: Basophils % (auto) 0.7 % (0.0-2.0); Eosinophils % (auto) 1.8 % (0.0-7.0); Hematocrit 50.6 % (41.0-53.0); Hemoglobin 16.6 g/dL (13.5-17.5); Lymphocytes # (auto) 1.3 10 ^3/uL (0.4-5.4); Lymphocytes % (auto) 24.5 % (10.0-50.0); Mean Corpuscular Hemoglobin 26.8 pg (28.0-32.0); Mean Corpuscular Hgb Conc. 32.8 g/dL (32.0-36.0); Monocytes # (auto) 0.7 10 ^3/uL (0-1.3); Monocytes % (auto) 13.5 % (0.0-12.0); Neutrophils # (auto) 3.1 10 ^3/uL (1.6-8.6); Neutrophils % (auto) 59.5 % (37.0-80.0); Nucleated Red Blood Cells % 0.4 %; Red Blood Cells 6.19 10^6/uL (4.5-5.90); Red Cell Distribution Width 16.1 % (11.8-14.3); White Blood Cell 5.3 10^3/uL (4.4-10.8)
[2023-07-20 14:10] LABS: Alanine Aminotransferase 17 U/L (7-40); Albumin 4.4 g/dL (3.2-4.8); Alkaline Phosphatase 86 U/L (46-116); Anion Gap 8 (5-15); Aspartate Aminotransferase 29 U/L (13-40); BUN/Creatinine Ratio 8.3 (10.0-20.0); Bilirubin, Total 1.5 mg/dL (0.2-1.0); Blood Urea Nitrogen 12 mg/dL (9-23); Calcium 9.7 mg/dL (8.5-10.1); Carbon Dioxide 26 mmol/L (20-30); Chloride 108 mmol/L (98-107); Glucose 92 mg/dL (74-106); Potassium 3.8 mmol/L (3.5-5.1); Sodium 142 mmol/L (136-145); Total Protein 7.8 g/dL (5.7-8.2)
[2023-07-20 15:31] VITALS: PULSE 133; RESP 15; O2SAT 96
[2023-07-20] MEDS: LABETALOL HCL 5 MG/ML 4ML SYRINGE IV ONE (15:35)
[2023-07-20] MEDS: METOPROLOL SUCCINATE XL 50 MG TAB PO ONE (16:49)
[2023-07-20] MEDS: METOPROLOL TARTRATE 1MG/1ML-5ML VIAL IV ONE (16:51)
[2023-07-20] MEDS: FUROSEMIDE 40 MG/4 ML VIAL IV ONE (17:59)
[2023-07-20] MEDS ORDERED: AMIODARONE BOLUS KIT 100 ML IV ONE (18:30)
[2023-07-20] MEDS ORDERED: NITROGLYCERIN 0.4 MG SL TAB SL PRN (18:45)
[2023-07-20] MEDS ORDERED: MORPHINE SULFATE INJ 2 MG/ml SYRG IV PRN (18:45)
[2023-07-20] MEDS ORDERED: ACETAMINOPHEN 325 MG TAB PO PRN (18:45)
[2023-07-20 19:38] VITALS: PULSE 126; RESP 20; O2SAT 97
[2023-07-20] MEDS: AMIODARONE BOLUS KIT 100 ML IV ONE (19:45)
[2023-07-20] MEDS: AMIODARONE 450mg/250ml AE 250 ML IV SCH (20:17)
[2023-07-20 21:14] LABS: Urine WBC None Seen /hpf (0 - 3)
[2023-07-20 21:28] LABS: Urine Bacteria NONE SEEN /hpf (None Seen); Urine Blood Negative /uL (Negative); Urine Clarity Clear (Clear); Urine Color Colorless (Yellow); Urine Hyaline Cast FEW /lpf (0 - 2); Urine Protein, UAD Negative (Negative); Urine Specific Gravity 1.008 (1.001-1.035); Urine Urobilinogen Normal (Negative); Urine pH 5.5 (5.0-8.0)
[2023-07-20] MEDS ORDERED: hydrALAZINE HCL 20 MG/ML VL IV PRN (21:45)
[2023-07-20] MEDS: APIXABAN 5 MG TAB PO SCH (22:00)
[2023-07-20 22:54] VITALS: BP 105/83; PULSE 102; TEMP 98.4; O2SAT 96
[2023-07-21] MEDS: AMIODARONE 450mg/250ml AE 250 ML IV SCH ×2 (01:31→02:18)
[2023-07-21 05:04] LABS: Basophils # (auto) 0 10 ^3/uL (0-0.2); Eosinophils # (auto) 0.1 10 ^3/uL (0-0.8); Hemoglobin 14.8 g/dL (13.5-17.5); Nucleated Red Blood Cells % 0.2 %
[2023-07-21 05:07] LABS: Basophils % (auto) 0.6 % (0.0-2.0); Eosinophils % (auto) 1.7 % (0.0-7.0); Hematocrit 44.9 % (41.0-53.0); Lymphocytes # (auto) 1.7 10 ^3/uL (0.4-5.4); Lymphocytes % (auto) 33.3 % (10.0-50.0); Mean Corpuscular Hemoglobin 26.7 pg (28.0-32.0); Mean Corpuscular Hgb Conc. 32.9 g/dL (32.0-36.0); Mean Corpuscular Volume 81.2 fL (80.0-100.0); Monocytes # (auto) 0.8 10 ^3/uL (0-1.3); Monocytes % (auto) 16.8 % (0.0-12.0); Neutrophils # (auto) 2.4 10 ^3/uL (1.6-8.6); Neutrophils % (auto) 47.6 % (37.0-80.0); Red Blood Cells 5.53 10^6/uL (4.5-5.90); Red Cell Distribution Width 15.9 % (11.8-14.3); White Blood Cell 5.1 10^3/uL (4.4-10.8)
[2023-07-21 05:25] LABS: Alanine Aminotransferase 12 U/L (7-40); Albumin 3.7 g/dL (3.2-4.8); Alkaline Phosphatase 66 U/L (46-116); Anion Gap 8 (5-15); Aspartate Aminotransferase 20 U/L (13-40); BUN/Creatinine Ratio 9.8 (10.0-20.0); Blood Urea Nitrogen 14 mg/dL (9-23); Calcium 8.9 mg/dL (8.7-10.4); Carbon Dioxide 25 mmol/L (20-30); Chloride 108 mmol/L (98-107); Glucose 110 mg/dL (74-106); Potassium 3.7 mmol/L (3.5-5.1); Sodium 141 mmol/L (136-145)
[2023-07-21 05:26] LABS: Bilirubin, Total 1.6 mg/dL (0.2-1.0); Total Protein 6.4 g/dL (5.7-8.2)
[2023-07-21] MEDS: DIGOXIN (250MCG/ML) 2 ML AMPULE IV ONE (06:08)
[2023-07-21 07:20] VITALS: PULSE 83; RESP 12; O2SAT 97
[2023-07-21] MEDS ORDERED: AMIODARONE 450mg/250ml AE 250 ML IV SCH (07:30)
[2023-07-21] MEDS ORDERED: AMIO200T33 PO ×2 (07:30→12:11)
[2023-07-21] MEDS: RIVAROXABAN 20 MG TAB PO ONE (11:06)
[2023-07-21] MEDS: AMIODARONE HCL 200 MG TAB PO ONE (11:07)
[2023-07-21 12:00] VITALS: BP 150/80; PULSE 71; RESP 18; TEMP 97.2; O2SAT 97
== END 2023-07-21 12:12 | disposition home or self-care (01) ==
LOC: ER 13:13 → TELE 18:45
PROVIDERS: ADMIT Student in an Organized Health Care Education/Training Program; ATTEND Student in an Organized Health Care Education/Training Program
DX: I48.92 Unspecified atrial flutter (principal); I13.0 Hypertensive heart and chronic kidney disease with heart failure and stage 1 through stage 4 chronic kidney disease, or unspecified chronic kidney disease; E11.22 Type 2 diabetes mellitus with diabetic chronic kidney disease; I50.22 Chronic systolic (congestive) heart failure; N18.9 Chronic kidney disease, unspecified; E66.01 Morbid (severe) obesity due to excess calories; I16.9 Hypertensive crisis, unspecified; I42.0 Dilated cardiomyopathy; Z86.73 Personal history of transient ischemic attack (TIA), and cerebral infarction without residual deficits; Z95.810 Presence of automatic (implantable) cardiac defibrillator; Z79.899 Other long term (current) drug therapy; Z68.42 Body mass index [BMI] 45.0-49.9, adult
CPT/HCPCS: 36415; 71045; 80053; 81001; 83735; 83880; 84484; 85025; 85379; 93005; 93306; 96365; 96366; 96375; 99291; G0378; J0282; J1160; J1940; J3490

== ENCOUNTER 2024-09-06 09:20 | Emergency (ER) | payer OTHER ==
[~2024-09-06] VITALS: Ht 175.3 cm; Wt 138.6 kg
[~2024-09-06 09:20] MED LIST changes: +AMIO200T33 PO; -ATO40T PO; +ATOR-507 PO
[2024-09-06 10:05] VITALS: BP 182/85; PULSE 50; RESP 21; TEMP 97.6; O2SAT 99
--- NOTE | 2024-09-06 10:16 | ED.PDOC ---
Musculoskeletal HPI Comments A 69 YEAR OLD MALE PRESENTS TO THE ED WITH CHIEF COMPLAINT OF RIGHT FOOT PAIN S/P INJURY. PATIENT REPORTS THAT HE HAD ACCIDENTALLY DROPPED A FROZEN BURRITO ON HIS RIGHT FOOT YESTERDAY, CAUSING WORSENING PAIN AND SWELLING TO THE AREA. PATIENT DENIES ANY NUMBNESS, WEAKNESS, OR FURTHER INJURY. NO FURTHER SYMPTOMS OR CONCERNS DURING TREATMENT. Chief Complaint: Lower Extremity Time Seen by MD: 10:13 Primary Care Provider: bari Reviewed Notes: Nurses Notes, Medications, Allergies Allergies: Coded Allergies: Lisinopril (Verified Allergy, Mild, 03/18/19) PER PT FAMILY MEMBER, IT CAUSES HIM TO COUGH. Penicillins (Verified Allergy, Unknown, 09/06/24) Home Meds Active Scripts Acetaminophen (Tylenol 8 Hour Arthritis) 650 Mg Tab, 650 MG PO TID, #30 TAB Prov:VOLODYMYR NORIEGA 09/06/24 Amiodarone Hcl (Amiodarone Hcl) 200 Mg Tab, 200 MG PO BID for 30 Days, #60 TAB 3 Refills Prov:ABEL LOAIZA MD 07/21/23 Apixaban Base (ELIQUIS) 5 Mg Tab, 5 MG OR BID, #60 TAB Prov:GENARO FRANK MD 09/06/19 Reported Medications Furosemide (Lasix) 40 Mg Tab, 40 MG PO BID, TAB 09/06/19 Aspirin (Asa) 81 Mg Ch, 81 MG PO, TAB.CHEW 09/06/19 Sacubitril-Valsartan (Entresto 24-26 mg) 1 Tab Tab, 1 TAB PO BID, TAB 09/06/19 Atorvastatin Calcium (Lipitor) 40 Mg Tab, 1 TAB PO DAILY, #30 TAB 5 Refills 09/06/19 Potassium Chloride (Klor-Con M20) 20 Meq Tab, 20 MEQ PO DAILY, TAB 09/06/19 Information Source: Patient Mode of Arrival: Ambulatory Location: Right Extremity Location: Foot Timing: Days Prehospital treatment: None Severity: Moderate Able to Move Extremity: Yes Bear Weight: Limited Pain: Moderate Mechanism: Blunt Trauma Circumstances: Accident Onset of Symptoms: After Trauma Symptoms: Swelling, Pain DVT Risk Factors: NONE Last Tetanus: UTD Associated signs and symptoms: Foot pain Past Medical History PAST MEDICAL HISTORY: CHF, DM, High Lipids, HTN, IN Surgical History: Pacemaker Family History Family History: Family hx of heart mili Social History Smoker: Non-Smoker Alcohol: Denies ETOH Use Drugs: Denies Drug Use Lives In: Home Constitutional: denies: chills, diaphoresis, fatigue, fever, malaise, sweats, weakness, others EENTM: denies: blurred vision, double vision, ear bleeding, ear discharge, ear drainage, ear pain, ear ringing, eye pain, eye redness, hearing loss, mouth pain, mouth swelling, nasal discharge, nose bleeding, nose congestion, nose pain, photophobia, tearing, throat pain, throat swelling, voice changes, others Respiratory: denies: cough, hemoptysis, orthopnea, SOB at rest, shortness of breath, SOB with excertion, stridor, wheezing, others Cardiovascular: denies: chest pain, dizzy spells, diaphoresis, Dyspnea on exertion, edema, irregular heart beat, left arm pain, lightheadedness, palpitations, PND, syncope, others Gastrointestinal: denies: abdomen distended, abdominal pain, blood streaked bowels, constipated, diarrhea, dysphagia, difficulty swallowing, hematemesis, melena, nausea, poor appetite, poor fluid intake, rectal bleeding, rectal pain, vomiting, others Genitourinary: denies: burning, dysuria, flank pain, frequency, hematuria, incontinence, penile discharge, penile sore, pain, testicle pain, testicle swelling, urgency, others Neurological: denies: dizziness, fainting, headache, left sided numbness, left sided weakness, numbness, paresthesia, pre-existing deficit, right sided numbness, right sided weakness, seizure, speech problems, tingling, tremors, weakness, others Musculoskeletal: reports: joint pain, joint swelling, others (RT FOOT PAIN AND SWELLING); denies: back pain, gout, muscle pain, muscle stiffness, neck pain Integumetry: reports: bruises (RIGHT DORSAL FOOT); denies: change in color, change in hair/nails, dryness, laceration, lesions, lumps, rash, wounds, others Allergic/Immunocompromised: denies: Difficulty Healing, Frequent Infections, Hives, Itching, others Hematologic/Lymphatic: denies: anemia, blood clots, easy bleeding, easy bruising, swollen glands, others Endocrine: denies: excessive hunger, excessive sweating, excessive thirst, excessive urination, flushing, intolerance to cold, intolerance to heat, unexplained weight gain, unexplained weight loss, others Psychiatric: denies: anxiety, bipolar disorder, depression, hopeless, panic disorder, schizophrenia, sleepless, suicidal, others All Other Systems: Reviewed and Negative Physical Exam General Appearance: No Apparent Distress, Obese HEENT: Normal ENT Inspection, PERRL/EOMI Neck: Full Range of Motion, Non-Tender, Normal, Normal Inspection Respiratory: Chest Non-Tender, Lungs Clear, No Accessory Muscle Use, No Respiratory Distress, Normal Breath Sounds Cardiovascular: No Edema, No JVD, No Murmur, No Gallop, Normal Peripheral Pulses, Regular Rate/Rhythm Breast Exam: Deferred Gastrointestinal: No Organomegaly, Non Tender, No Pulsatile Mass, Normal Bowel Sounds, Soft Genitalia: Deferred Pelvic: Deferred Rectal: Deferred Extremities: No calf tenderness, Normal capillary refill, No pedal edema, Swelling (TENDERNESS AND CONTUSION ON RIGHT DORSAL FOOT, NO BONY TENDERNESS AND DEFORMITY. ), Tender (AND MILD SWELLING ON RIGHT DORSAL FOOT, NO OPEN WOUND SEEN. ) Musculoskeletal : Apperance: Normal Neurologic: Alert, escalator attendant II-XII nml as Tested, No Motor Deficits, Normal Affect, Normal Mood, No Sensory Deficits Cerebellar Function: Normal Reflexes: Normal Skin: Bruises (RIGHT DORSAL FOOT. ), Dry, Normal Color, Warm Peripheral Pulses: 2+ carotid (R), 2+ carotid (L), 2+ dorsalis pedis (R), 2+ dorsalis pedis (L) Lymphatic: No Adenopathy Was a procedure done? Was a procedure done?: No Differential Diagnosis EXT Differential Diagnosis: Fracture, Sprain, Contusion, Strain, Bursitis X-Ray, Labs, Meds, VS Vital Signs Date Time Temp Pulse Resp B/P (MAP) Pulse Ox O2 Delivery O2 Flow Rate FiO2 09/06/24 10:05 97.6 50 21 182/85 (117) 99 97.6 09/06/24 10:05 50 21 99 Room Air 09/06/24 09:42 97.6 56 21 182/85 (117) 99 97.6 Current Medications Medications (Trade) Dose Ordered Sig/Abbie Route Start Time Stop Time Status Last Admin Acetaminophen (Tylenol Tablet Or Capsule) 1,000 mg ONCE ONCE PO 09/06/24 11:00 09/06/24 11:01 DC 09/06/24 11:13 RT FOOT XR: FINDINGS/IMPRESSION: There is no evidence of acute fracture or dislocation. 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 Small plantar calcaneal enthesophyte. X-Ray, Labs, Meds, VS Comment EXTERNAL MEDICAL RECORDS REVIEWED: [NONE] INDEPENDENT HISTORIANS: [NONE] SOCIAL DETERMINANTS OF HEALTH: [NONE] LABS ORDERED: NONE REVIEWED AND INTERPRETED RESULTS: RT FOOT XR IMAGING ORDERED: RT FOOT XR TREATMENTS ORDERED: TYLENOL 1G PO PROCEDURES PERFORMED: NONE CRITICAL CARE TIME: NONE I HAVE DISCUSSED THE PATIENT WITH THE ATTENDING PHYSICIAN DR. GAO AND HE AGREES WITH THE PATIENT'S PLAN OF CARE AND DISPOSITION. BASED ON HISTORY OF PRESENT ILLNESS, AND PHYSICAL EXAM, PATIENT WILL BE DISCHARGED HOME. DISCUSSED PLAN FOR DISCHARGE HOME WITH RX. MEDICATION WARNINGS GIVEN. SHARED DECISION MAKING: DISCUSSED WITH PATIENT THAT THEIR WORKUP WAS NORMAL. PATIENT INSTRUCTED TO FOLLOW UP WITH PRIMARY CARE PROVIDER IN 1-2 DAYS FOR RE- EVALUATION OF SYMPTOMS. PATIENT VERBALIZES UNDERSTANDING TO RETURN TO ED FOR NEW OR WORSENING SYMPTOMS OR IF FOLLOW UP WITH PCP CANNOT BE OBTAINED. PATIENT FEELS COMFORTABLE GOING HOME AT THIS TIME. ALL QUESTIONS ADDRESSED AT TIME OF DISCHARGE. Time of 1ST Reevaluation: 11:26 Reevaluation 1ST: Improved Patient Education/Counseling: Diagnosis, Treatment Family Education/Counseling: Diagnosis, Treatment, No Family Present Medical Screening: No EMC Exist At This Time Departure 1 Departure Time of Disposition: 11:26 Impression: Primary Impression: Contusion of right foot Qualified Codes: S90.31XA - Contusion of right foot, initial encounter Additional Impression: Arthritis of right foot Disposition: 01 HOME / SELF CARE / HOMELESS Condition: Stable Additional Instructions: FOLLOW-UP WITH PCP IN 1 TO 2 DAYS. TAKE MEDICATIONS PRESCRIBED. RETURN TO ED FOR ANY NEW OR WORSENING SYMPTOMS. e-Prescriptions Acetaminophen (Tylenol 8 Hour Arthritis) 650 Mg Tab 650 MG PO TID, #30 TAB Prov: VOLODYMYR NORIEGA 09/06/24 Discharged With: Self Critical Care Note Critical Care Time?: No Stability Stability form required: No Heart Score Heart Score: Heart Score Response (Comments) Value History N/A 0 EKG N/A 0 Age N/A 0 Risk Factors N/A 0 Troponin N/A 0 Total 0 I personally scribed for VOLODYMYR NORIEGA ([email or web address]) on 09/06/24 at 10:16. Electronically submitted by Sean Schuster ([email or web address]). I personally scribed for VOLODYMYR NORIEGA ([email or web address]) on 09/06/24 at 11:20. Electronically submitted by Sean Schuster ([email or web address]). I personally scribed for VOLODYMYR NORIEGA ([email or web address]) on 09/06/24 at 11:20. Electronically submitted by Sean Schuster ([email or web address]). I personally scribed for VOLODYMYR NORIEGA ([email or web address]) on 09/06/24 at 11:21. E lectronically submitted by Sean Schuster ([email or web address]). VOLODYMYR NORIEGA Sep 06, 2024 10:16
[2024-09-06] MEDS: ACETAMINOPHEN 500 MG TAB or CAP PO ONE (11:13)
--- NOTE | 2024-09-06 11:13 | DVH ---
CLINICAL INDICATION: Trauma TECHNIQUE: 3 radiographic views of the right foot were obtained. Comparison: None FINDINGS/IMPRESSION: There is no evidence of acute fracture or dislocation. 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 Small plantar calcaneal enthesophyte.
[2024-09-06] MEDS ORDERED: ACET-1080 PO (11:26)
== END 2024-09-06 11:29 | disposition home or self-care (01) ==
LOC: ER 09:20
DX: S90.31XA Contusion of right foot, initial encounter (principal); M19.071 Primary osteoarthritis, right ankle and foot; I11.0 Hypertensive heart disease with heart failure; I50.9 Heart failure, unspecified; E11.9 Type 2 diabetes mellitus without complications; E78.5 Hyperlipidemia, unspecified; Z95.0 Presence of cardiac pacemaker; Z79.01 Long term (current) use of anticoagulants; Z79.899 Other long term (current) drug therapy; Z88.0 Allergy status to penicillin; Z88.8 Allergy status to other drugs, medicaments and biological substances; W20.8XXA Other cause of strike by thrown, projected or falling object, initial encounter; Y93.89 Activity, other specified; Y92.89 Other specified places as the place of occurrence of the external cause; Y99.8 Other external cause status
CPT/HCPCS: 73630